=== PATIENT | female | born 2000 | race Hispanic/Latino ===

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

== ENCOUNTER 2022-09-30 15:35 | Observation (INO) | payer MEDICAID ==
[~2022-09-30] VITALS: Ht 154.9 cm; Wt 86.6 kg
[~2022-09-30 15:35] MED LIST changes: +DIPH1POW36 PO; +DOCU-116 PO; +FERS325 PO; +IBUP-2077 PO; -METHYLERGONOVINE MALEATE 0.2 MG/1 ML ML IM ONE; -OXYTOCIN 10 USP UNITS/ML IM ONE; +PREN1TAB63 PO
[2022-09-30] MEDS ORDERED: LACTATED RINGERS 1000ML 1,000 ML IV ONE (16:34)
[2022-09-30 17:00] LABS: AMPHET/METH SCREEN,URINE NEGATIVE (NEGATIVE); BARBITURATE SCREEN, URINE NEGATIVE (NEGATIVE); BENZODIAZEPINES SCREEN,URINE NEGATIVE (NEGATIVE); CANNABINOID SCREEN,URINE NEGATIVE (NEGATIVE); COCAINE SCREEN,URINE NEGATIVE (NEGATIVE); OPIATE SCREEN,URINE NEGATIVE (NEGATIVE); PHENCYCLIDINE SCREEN,URINE NEGATIVE (NEGATIVE)
[2022-09-30] MEDS ORDERED: LACTATED RINGERS 1000ML IV SCH (17:00)
[2022-09-30 17:01] LABS: APPEARANCE,URINE CLEAR (CLEAR); BILIRUBIN,URINE NEGATIVE (NEGATIVE); COLOR,URINE YELLOW (YELLOW); GLUCOSE, URINE (UA) NEGATIVE (NEGATIVE); KETONES,URINE 60 mg/dL (NEGATIVE); LEUKOCYTE ESTERASE ,URINE 25 Leu/uL (NEGATIVE); NITRATE,URINE NEGATIVE (NEGATIVE); OCCULT BLOOD,URINE NEGATIVE (NEGATIVE); PH,URINE 5.5 (5.0-8.0); PROTEIN,URINE 30 mg/dL (NEGATIVE); UROBILINOGEN,URINE 0.2 mg/dL (0.2-1.0)
[2022-09-30 17:08] LABS: BACTERIA,URINE FEW /HPF (None Seen); MUCUS,URINE MOD LPF (None Seen); OTHER CASTS, URINE 1 /LPF (None Seen); SQUAMOUS EPITHELIAL CELL,UR FEW /HPF (0-2); YEAST,URINE BUDDING RARE /HPF (None Seen)
[2022-09-30 17:15] LABS: BASOPHILS % (AUTO) 0.2 % (0.0-5.0); EOSINOPHILS % (AUTO) 0.2 % (0.0-8.0); HEMATOCRIT 32.7 % (36-48); MEAN CORPUSCULAR HEMOGLOBIN 23.6 pg (27.0-33.0); MEAN CORPUSCULAR HGB CONC 32.1 g/dL (32.0-36.0); MEAN CORPUSCULAR VOLUME 73.6 fL (80-100); MONOCYTES % (AUTO) 4.2 % (3.0-13.0); NEUTROPHILS % (AUTO) 86.1 % (40.0-77.0); PLATELET COUNT (AUTO) 259 K/uL (130-400); RED BLOOD CELL COUNT(AUTO) 4.44 MIL/uL (4.00-5.50); WHITE BLOOD COUNT (AUTO) 12.5 K/uL (4.8-10.8)
[2022-09-30] MEDS ORDERED: LACTATED RINGERS 1000ML 1,000 ML IV PRN (17:30)
[2022-09-30 17:31] LABS: CREATININE 0.5 mg/dL (0.5-1.5); POTASSIUM 3.5 mmol/L (3.5-5.1)
[2022-09-30 17:36] LABS: ALBUMIN 2.8 g/dL (3.5-5.0); TOTAL PROTEIN, SERUM 7.4 g/dL (6.0-8.3)
[2022-09-30] MEDS ORDERED: ONDANSETRON 4MG INJ IVP ONE (18:00)
[2022-09-30 18:17] VITALS: BP 118/72
[2022-10-01 15:43] LABS: RAPID PLASMA REAGIN NONREACTIVE (NONREACTIVE)
[2022-10-02 08:15] LABS: HEPATITIS Bs ANTIGEN SCREEN P Negative (Negative)
== END 2022-09-30 18:40 | disposition home or self-care (01) ==
LOC: EDH 15:35 → LDH 15:36 → EDH 16:19
PROVIDERS: ADMIT Internal Medicine; ATTEND Internal Medicine
DX: O21.2 Late vomiting of pregnancy (principal); Z20.822 Contact with and (suspected) exposure to COVID-19; O26.893 Other specified pregnancy related conditions, third trimester; R19.7 Diarrhea, unspecified; O42.913 Preterm premature rupture of membranes, unspecified as to length of time between rupture and onset of labor, third trimester; Z3A.29 29 weeks gestation of pregnancy
CPT/HCPCS: 96360; 80053; 80305; 83690; 85025; 86592; 86850; 86900; 86901; 87804 ×2; 87340; 86701; 87390; 81001; 36415; 87635; 76805; G0378 ×2; J7120 ×2